=== PATIENT | female | born 1975 | race Caucasian/White ===

== ENCOUNTER 2020-11-17 00:56 | Inpatient (IN) | payer OTHER ==
--- NOTE | 2020-11-17 01:05 | ED ---
Chest Pain HPI - General Stated Complaint: Chest Pain Time Seen by Provider: 11/17/20 00:59 - History of Present Illness Initial Comments: This patient is a 44-year-old woman who presents here as a transfer from [facility] [place]. The patient had gone there this evening to be evaluated for chest pain. The pain had started in the morning, is substernal and radiates to her back. She states that it became worse in the afternoon and she really notices it after playing with her grandson. Patient denies having any sort of injury or doing any lifting. She describes it as a sharp pain. She did not notice any worsening or relieving factors. It is been constant. She rates it moderate to severe. Pain was somewhat relieved when she was given analgesic at the other facility. They did attempt to transfer her to the facilities where she receives her cardiac care. [facility] and [facility] in [place] but these were both at capacity. Patient's history is notable for having hypertrophic obstructive cardiomyopathy. She did have cardiac myomectomy and a mitral valvuloplasty at [facility]. In addition, patient states she was a little short of breath. No fever or chills. No cough. No nausea or vomiting. No leg pain or swelling MD Complaint: chest pain -: hour(s) Onset: during rest Pain Location: substernal Pain Radiation: back Severity: severe Quality: aching Consistency: constant Improves With: medication-other Worsens With: nothing Anginal Symptoms: dyspnea Treatments Prior to Arrival: other - Related Data Allergies Allergy/AdvReac Type Severity Reaction Status Date / Time digoxin Allergy Anaphylaxis Verified 11/17/20 01:38 Iodinated Contrast Media Allergy Anaphylaxis Verified 11/17/20 01:17 Penicillins Allergy Anaphylaxis Verified 11/17/20 01:17 erythromycin base AdvReac Rash/Hives Verified 11/17/20 01:17 nitroglycerin AdvReac Dyspnea Verified 11/17/20 01:17 sulfamethoxazole AdvReac Rash/Hives Verified 11/17/20 01:17 [From Bactrim] trimethoprim [From Bactrim] AdvReac Rash/Hives Verified 11/17/20 01:17 Review of Systems ROS Statement: Those systems with pertinent positive or pertinent negative responses have been documented in the HPI. ROS Other: All systems not noted in ROS Statement are negative. Constitutional: Denies: fever, chills Respiratory: Reports: dyspnea. Denies: cough, wheezes, hemoptysis Cardiovascular: Reports: chest pain. Denies: palpitations, orthopnea, edema, syncope Gastrointestinal: Denies: abdominal pain, nausea, vomiting, diarrhea Genitourinary: Denies: dysuria, hematuria Musculoskeletal: Denies: back pain Skin: Denies: rash Neurological: Denies: headache, weakness, numbness EKG Findings - EKG Results: EKG: interpreted by ERMD, sinus rhythm (Rate 94 bpm), normal axis, normal ST/T - Blocks, [place], Hypertrophy, ST Abn: AV and intraventricular conduction: left bundle branch block (fixed/intermittent, complete/incomplete) General Exam General appearance: alert, in no apparent distress Head exam: Present: atraumatic, normocephalic Eye exam: Present: normal appearance. Absent: scleral icterus, conjunctival injection Neck exam: Present: normal inspection, full ROM Respiratory exam: Present: normal lung sounds bilaterally. Absent: respiratory distress, wheezes, rales, rhonchi, stridor Cardiovascular Exam: Present: regular rate, normal rhythm, systolic murmur. Absent: diastolic murmur, rubs, gallop GI/Abdominal exam: Present: soft. Absent: distended, tenderness, guarding, rebound, rigid, mass, pulsatile mass, hernia Extremities exam: Present: normal inspection, normal capillary refill. Absent: pedal edema, calf tenderness Back exam: Present: normal inspection. Absent: CVA tenderness (R), CVA tenderness (L) Neurological exam: Present: alert Skin exam: Present: warm, dry, intact, normal color. Absent: rash Course Vital Signs 11/17/20 11/17/20 11/17/20 01:09 01:45 01:55 Temperature 99 F Pulse Rate 93 83 69 Respiratory 20 18 20 Rate Blood Pressure 173/105 166/105 138/83 O2 Sat by Pulse 97 98 98 Oximetry 11/17/20 02:00 Temperature Pulse Rate 69 Respiratory 20 Rate Blood Pressure 119/78 O2 Sat by Pulse 98 Oximetry Disposition Referrals: Morena Price MD [Primary Care Provider] - 1-2 days
[2020-11-17] MEDS ORDERED: LABETALOL 5 MG/ML VIAL MDV IVP STA (01:18)
[2020-11-17 01:33] LABS: Anisocytosis Slight; Basophils # (A) 0.1 k/uL (0-0.2); Basophils % (A) 1 %; Eosinophils # (A) 0.3 k/uL (0-0.7); Eosinophils % (A) 3 %; HCT 30.3 % (34.0-46.0); HGB 8.7 gm/dL (11.4-16.0); Hypochromasia Marked; Lymphocytes # (A) 2.1 k/uL (1.0-4.8); Lymphocytes % (A) 20 %; MCHC 28.8 g/dL (31.0-37.0); MCV 69.5 fL (80.0-100.0); Mean Platelet Volume 7.1; Microcytosis Marked; Monocytes # (A) 0.7 k/uL (0-1.0); Monocytes % (A) 6 %; Neutrophils # (A) 7.4 k/uL (1.3-7.7); Neutrophils % (A) 69 %; Platelet Count 313 k/uL (150-450); Poikilocytosis Slight; RBC 4.36 m/uL (3.80-5.40); RDW 17.2 % (11.5-15.5); WBC 10.8 k/uL (3.8-10.6)
[2020-11-17 01:43] LABS: ALT 16 U/L (4-34); AST 28 U/L (14-36); African American GFR (CKD) >90 (>60 ml/min/1.73 sqM); Albumin 4.4 g/dL (3.5-5.0); Alkaline Phosphatase 74 U/L (38-126); Amylase 152 U/L (30-110); Anion Gap 10 mmol/L; Blood Urea Nitrogen 12 mg/dL (7-17); Calcium 9.3 mg/dL (8.4-10.2); Carbon Dioxide 22 mmol/L (22-30); Chloride 102 mmol/L (98-107); Glucose 110 mg/dL (74-99); Lipase 1704 U/L (23-300); Magnesium 1.9 mg/dL (1.6-2.3); Non-African American GFR(CKD) >90 (>60 ml/min/1.73 sqM); Potassium 4.1 mmol/L (3.5-5.1); Sodium 134 mmol/L (137-145); Total Bilirubin 0.8 mg/dL (0.2-1.3); Total Protein 7.3 g/dL (6.3-8.2)
[2020-11-17 02:08] LABS: Prothrombin Time 10.3 sec (9.0-12.0)
[2020-11-17 02:14] LABS: Partial Thromboplastin Time 20.6 sec (22.0-30.0)
[2020-11-17] MEDS ORDERED: HYDROmorphone 1 MG/ML 1 ML SYRINGE IVP STA (02:19)
[2020-11-17] MEDS ORDERED: NITROGLYCERIN SL TABS 0.4 MG TAB SUBLINGUAL PRN (03:38)
--- NOTE | 2020-11-17 03:43 | XR ---
EXAMINATION TYPE: XR chest 2V DATE OF EXAM: 11/17/2020 COMPARISON: Yesterday HISTORY: Chest pain TECHNIQUE: 2 views FINDINGS: There is no heart failure nor confluent pneumonic infiltrate. There is left axillary pacema ker. There are sternal wires. Costophrenic angles are clear. IMPRESSION: No active cardiopulmonary disease. No change.
--- NOTE | 2020-11-17 06:58 | P.HPIM ---
History of Present Illness H&P Date: 11/17/20 Chief Complaint: chest pain 44 year old female with HOCM patient comes in due to worsening of her chest pain , after attempting to lift her 2 year old grandson in the afternoon today, she claims at baseline she always has some degree of chest pain , and becomes easily winded with slightest activity. however, today she started experiencing sharp retrosternal chest pain radiates to the back , no nausea or vomiting, but initially she became diaphoretic and winded. pain will get worse with activity , and improves with pain meds. 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 she has received septal myomectomy and valveloplasty of mitral valve 2016, she also has an ICD device. she normally receives her care at [facility] or [facility] in [place], last time she was hospitalized at [facility] for 5 months till April 2019. she went to [facility] who tried to transfer her to [facility] or [facility] in [place], but both were at capacity . she also is on Xarelto for history of multiple blood clots, of which some had happened while on Xarelto . her current D dimer elevated, however, sheis not hyp oxic and no leg swelling or calf tenderness, she is allergic to contrast with severe allergy and requires prep. blood work at the other facility showed, leukocytosis 10.8. chronic microcytic anemia , patient claims she has heavy menstrual bleeding that has just recently stopped and was on going for about 3 months straight EKG showed chronic LBBB patient amylase and lipase elevated but she denies any history of pancreatitis, denies any abd pain , or ulcers. she denies alcohol drinking or smoking. and reports history of cholecystectomy CXR unremarkable Review of Systems Pertinent positives as noted in HPI. All other systems were reviewed and are neg ative Past Medical History Past Medical History: Chest Pain / Angina, Heart Failure, Hypertension, Myocardial Infarction ([place]) Additional Past Medical History / Comment(s): Hypertrophic obstructive myopathy, ISABELLA, Dystolic CHF, PE bilateral lung, DVT bilateral legs History of Any Multi-Drug Resistant Organisms: None Reported Past Surgical History: Cardiac Valve Replacement, Section, Cholecystectomy, Orthopedic Surgery, Pacemaker Additional Past Surgical History / Comment(s): back fusion Past Psychological History: PTSD Smoking Status: Former smoker Past Alcohol Use History: None Reported Past Drug Use History: None Reported - Past Family History family Family Medical History: No Reported History Medications and Allergies Allergies Allergy/AdvReac Type Severity Reaction Status Date / Time digoxin Allergy Anaphylaxis Verified 11/17/20 01:38 Iodinated Contrast Media Allergy Anaphylaxis Verified 11/17/20 01:17 Penicillins Allergy Anaphylaxis Verified 11/17/20 01:17 erythromycin base AdvReac Rash/Hives Verified 11/17/20 01:17 nitroglycerin AdvReac Dyspnea Verified 11/17/20 01:17 sulfamethoxazole AdvReac Rash/Hives Verified 11/17/20 01:17 [From Bactrim] trimethoprim [From Bactrim] AdvReac Rash/Hives Verified 11/17/20 01:17 Physical Exam Vitals: Vital Signs Temp Pulse Resp BP Pulse Ox 11/17/20 04:00 74 18 101/61 98 11/17/20 02:00 69 20 119/78 98 11/17/20 01:55 69 20 138/83 98 11/17/20 01:45 83 18 166/105 98 11/17/20 01:09 99 F 93 20 173/105 97 Intake and Output 11/16/20 11/16/20 11/17/20 14:59 22:59 06:59 Other: Weight 99.79 kg Constitutional: No acute distress, conversant, pleasant Eyes: Anicteric sclerae, moist conjunctiva, Pupils equal round reactive to light ENMT: NC/AT Oropharynx clear, no erythema, or exudates Neck: Supple, FROM, no masses, or JVD No carotid bruits No thyromegaly Lungs: Clear to auscultation Clear to percussion Normal respiratory effort, no accessory muscle use Cardiovascular: Heart regular in rate and rhythm, systolic murmurs, no gallops, or rubs No peripheral edema Abdominal: Soft Nontender, no guarding, rebound or rigidity Abdomen moving with respiration Normoactive bowel sounds No hepatomegaly, No splenomegaly No palpable mass No abdominal wall hernia noted Skin: Normal temperature, tone, texture, turgor No induration No subcutaneous nodules No rash, lesions No ulcers Extremities: No digital cyanosis No clubbing Pedal pulses intact and symmetrical Radial pulses intact and symmetrical No calf tenderness Psychiatric: Alert and oriented to person, place and time Appropriate affect fair judgement Neuro Muscles Strength 5/5 in all 4 extremities Sensation to light touch grossly present throughout Cranial nerves II-XII grossly intact No focal sensory deficits Lymphatics: no palpable cervical or supraclavicular , or inguinal lymph nodes Results CBC & Chem 7: 11/17/20 01:25 11/17/20 01:25 Labs: Abnormal Lab Results - Last 24 Hours (Table) 11/17/20 11/17/20 11/17/20 Range/Units 01:25 01:25 01:25 WBC 10.8 H (3.8-10.6) k/uL Hgb 8.7 L (11.4-16.0) gm/dL Hct 30.3 L (34.0-46.0) % MCV 69.5 L (80.0-100.0) fL MCH 20.0 L (25.0-35.0) pg MCHC 28.8 L (31.0-37.0) g/dL RDW 17.2 H (11.5-15.5) % APTT 20.6 L (22.0-30.0) sec D-Dimer 0.74 H (<0.60) mg/L FEU Sodium 134 L (137-145) mmol/L Glucose 110 H (74-99) mg/dL Troponin I (0.000-0.034) ng/mL Amylase 152 H (30-110) U/L Lipase 1704 H (23-300) U/L 11/17/20 Range/Units 01:25 WBC (3.8-10.6) k/uL Hgb (11.4-16.0) gm/dL Hct (34.0-46.0) % MCV (80.0-100.0) fL MCH (25.0-35.0) pg MCHC (31.0-37.0) g/dL RDW (11.5-15.5) % APTT (22.0-30.0) sec D-Dimer (<0.60) mg/L FEU Sodium (137-145) mmol/L Glucose (74-99) mg/dL Troponin I 0.042 H* (0.000-0.034) ng/mL Amylase (30-110) U/L Lipase (23-300) U/L Assessment and Plan Assessment: atypical chest pain , rule out ACS HOCM s/p septal myomectomy and valveloplasty of mitral valve , s/p ICD denies history of CAD slightly elevated trops, patient claims that she has chronically elevated trops trend trops resume cardiac meds once verified cardiology consult consider contacting her [facility] resident care aid for further recommendations , and if they want to consider transfer and accepting her cardiac monitoring avoid diuretics avoid nitro , or meds that lowers preload. like hydralazine EKG chronic LBBB pain control with dilaudid elevated D dimer oxygen saturation >94%on room air no calf tenderness hisotry of multiple clots , currently on xarelto resume blood thinner s chronic microcytic anemia suspected iron deficiency anemia from heavy menses check iron studies monitor hemoglobin elevated amylase / lipase , unknown baseline, unknown cause no S&S of acute pancreatitis or PUD close monitoring denies alcohol drinking , history of cholecystectomy verify home meds full code DVT PPX on xarelto consider contacting [facility] to discuss her case with her resident care aid, and see if they would like to accept her anticipated length of stay <2 midnights anticipated discharge to home vs transfer to tertiary center
[2020-11-17] MEDS: HYDROmorphone 0.5 MG/0.5 ML SYRINGE IVP PRN ×4 (07:44→23:41)
[2020-11-17] MEDS: METOPROLOL SUCCINATE (ER) 100 MG TAB.ER.24H PO SCH ×2 (09:26→19:57)
[2020-11-17] MEDS: RIVAROXABAN 20 MG TAB PO SCH (09:27)
[2020-11-17] MEDS: LOSARTAN 25 MG TAB PO SCH (09:31)
[2020-11-17] MEDS ORDERED: methylPREDNISolone SOD SUCCI 125 MG/2 ML VIAL IM ONE (09:37)
[2020-11-17] MEDS ORDERED: diphenhydrAMINE 50 MG/ML 1 ML VIAL IVP STA (09:39)
[2020-11-17] MEDS ORDERED: FAMOTIDINE 20 MG/2 ML VIAL IV STA (09:40)
[2020-11-17] MEDS ORDERED: MEXILETINE 150 MG CAP PO SCH (10:00)
[2020-11-17 10:43] LABS: Anisocytosis Slight; Basophils % (A) 1 %; Eosinophils # (A) 0.2 k/uL (0-0.7); Eosinophils % (A) 3 %; HCT 27.9 % (34.0-46.0); HGB 8.1 gm/dL (11.4-16.0); Hypochromasia Marked; Lymphocytes # (A) 1.5 k/uL (1.0-4.8); Lymphocytes % (A) 20 %; MCH 20.9 pg (25.0-35.0); MCHC 29.1 g/dL (31.0-37.0); MCV 71.7 fL (80.0-100.0); Mean Platelet Volume 7.2; Microcytosis Moderate; Monocytes # (A) 0.5 k/uL (0-1.0); Monocytes % (A) 6 %; Neutrophils # (A) 5.2 k/uL (1.3-7.7); Neutrophils % (A) 68 %; Platelet Count 275 k/uL (150-450); Poikilocytosis Slight; RDW 17.3 % (11.5-15.5); WBC 7.6 k/uL (3.8-10.6)
[2020-11-17 11:12] LABS: ALT 19 U/L (4-34); AST 30 U/L (14-36); African American GFR (CKD) >90 (>60 ml/min/1.73 sqM); Albumin 3.9 g/dL (3.5-5.0); Alkaline Phosphatase 65 U/L (38-126); Anion Gap 9 mmol/L; Blood Urea Nitrogen 13 mg/dL (7-17); Calcium 8.7 mg/dL (8.4-10.2); Carbon Dioxide 23 mmol/L (22-30); Chloride 103 mmol/L (98-107); Glucose 115 mg/dL (74-99); Non-African American GFR(CKD) >90 (>60 ml/min/1.73 sqM); Potassium 4.1 mmol/L (3.5-5.1); Sodium 135 mmol/L (137-145); Total Bilirubin 0.5 mg/dL (0.2-1.3); Total Protein 6.5 g/dL (6.3-8.2)
--- NOTE | 2020-11-17 12:41 | P.CRDCN ---
History of Present Illness History of present illness: HISTORY OF PRESENTING ILLNESS This is a pleasant 44-year-old female past medical history significant for hypertrophic cardiomyopathy status post septal myomectomy, valvular heart d isease status postmitral valvuloplasty, chronic systolic heart failure status post AICD placement, left bundle branch block, history of blood clots in the past maintained on Xarelto, hypertension and anemia. She follows in the office with Dr. Nicole at [facility], however she states she has not been to see him since the pandemic. She was evaluated at [facility] in July and underwent cardiac catheterization that revealed no significant blockages according to the patient. We have been asked to see in consultation for chest pain. She states yesterday while watching her grandson she bent down to pick him up and had an acute onset of chest pain described as tightness. She took an extra lopressor and losartan, put on her oxygen and laid down to rest. Shortly thereafter, her boyfriend checked on her and apparently her lips were blue and she was pale. On arrival to ER at [place]. She was then transferred here for further cardiac evaluation. She states dilaudid is relieving her pain mostly but still mildly ongoing 5/10, which she states is tolerable. No shortness of breath, dizziness or palpi tations. DIAGNOSTICS EKG reveals sinus rhythm heart rate of 94 with left bundle branch block. Chest xray negative for an acute cardiopulmonary process. Laboratory reviewed, WBC 7.6, hgb 8.1, plt 275, d-dimer 0.74, sodium 134, potassium 4.1, creatinine 0.74, troponin 0.042, 0.031, 0.027, proBNP 1520 and lipase 1704. Current cardiac medications include xarelto 20 mg daily, ranexa 500 mg BID, mexiletine 150 mg TID, toprol 200 mg BID, losartan 25 mg daily, lasix 20 mg daily as needed for lower extremity swelling, atorvastatin 40 mg daily and aspirin 81 mg daily. REVIEW OF SYSTEMS At the time of my exam: CONSTITUTIONAL: Denies fever or chills. CARDIOVASCULAR: Complains of chest pain. Denies shortness of breath, orthopnea, PND or palpitations. RESPIRATORY: Denies cough. GASTROINTESTINAL: Denies abdominal pain, diarrhea, constipation, nausea or vomiting. MUSCULOSKELETAL: Denies myalgias. NEUROLOGIC: Denies numbness, tingling, headache or weakness. ENDOCRINE: Denies fatigue, weight change, polydipsia or polyurina. GENITOURINARY: Denies burning, hematuria or urgency with micturation. HEMATOLOGIC: Denies history of anemia or bleeding. PHYSICAL EXAMINATION Blood pressure 119/78 heart rate 70 afebrile and maintaining oxygen saturation on room air. CONSTITUTIONAL: No apparent distress. HEENT: Head is normocephalic. Pupils are equal, round. Sclerae anicteric. Mucous membranes of the mouth are moist. No JVD. No carotid bruit. CHEST EXAMINATION: Lungs are clear to auscultation. No chest wall tenderness is noted on palpation or with deep breathing. HEART EXAMINATION: Regular rate and rhythm. S1, S2 heard. No murmurs, gallops or rub. ABDOMEN: Soft, nontender. EXTREMITIES: 2+ peripheral pulses, no lower extremity edema and no calf tenderness. NEUROLOGIC EXAMINATION: Patient is awake, alert and oriented x3. ASSESSMENT Chest pain, atypical Pancreatitis Chronic troponin elevation according to the patient. Recent normal cath. Hypertrophic cardiomyopathy s/p septal myomectomy Valvular heart disease s/p valvuloplasty Hypertension Chronic systolic heart failure s/p AICD Left bundle branch block PLAN Check VQ scan as she is allergic to IV contrast dye and is hesitant to have CTA due to severe reaction in the past. Echocardiogram has been ordered and will be reviewed. Request report of recent catheterization from [facility]. Unclear of rationale for the use of aspirin and ranexa given her reported history of no CAD. We will await cath films to make further adjustments. Further recommendations to follow based on clinical course. Thank you kindly for this consultation. Nurse Practitioner note has been reviewed, I agree with a documented findings and plan of care. Patient was seen and examined. Past Medical History Past Medical History: Chest Pain / Angina, Heart Failure, Hypertension, Myocardial Infarction ([place]) Additional Past Medical History / Comment(s): Hypertrophic obstructive myopathy, ISABELLA, Dystolic CHF, PE bilateral lung, DVT bilateral legs History of Any Multi-Drug Resistant Organisms: None Reported Past Surgical History: Cardiac Valve Replacement, Section, Cholecystectomy, Orthopedic Surgery, Pacemaker Additional Past Surgical History / Comment(s): back fusion Past Psychological History: PTSD Smoking Status: Former smoker Past Alcohol Use History: None Reported Past Drug Use History: None Reported - Past Family History family Family Medical History: No Reported History Medications and Allergies Home Medications Medication Instructions Recorded Confirmed Type Aspirin EC [Ecotrin Low Dose] 81 mg PO DAILY 11/17/20 11/17/20 History Atorvastatin [Lipitor] 40 mg PO HS 11/17/20 11/17/20 History Furosemide [Lasix] 20 mg PO DAILY PRN 11/17/20 11/17/20 History Ibuprofen [Motrin] 800 mg PO Q8H PRN 11/17/20 11/17/20 History Losartan [Cozaar] 25 mg PO DAILY 11/17/20 11/17/20 History Metoprolol Succinate 200 mg PO BID 11/17/20 11/17/20 History Mexiletine [Mexitil] 150 mg PO Q8H 11/17/20 11/17/20 History Ranolazine [Ranolazine ER] 500 mg PO Q12HR 11/17/20 11/17/20 History Rivaroxaban [Xarelto] 20 mg PO DAILY 11/17/20 11/17/20 History Allergies Allergy/AdvReac Type Severity Reaction Status Date / Time digoxin Allergy Anaphylaxis Verified 11/17/20 07:11 Iodinated Contrast Media Allergy Anaphylaxis Verified 11/17/20 07:11 Penicillins Allergy Anaphylaxis Verified 11/17/20 07:11 erythromycin base AdvReac Rash/Hives Verified 11/17/20 07:11 nitroglycerin AdvReac Dyspnea Verified 11/17/20 07:11 sulfamethoxazole AdvReac Rash/Hives Verified 11/17/20 07:11 [From Bactrim] trimethoprim [From Bactrim] AdvReac Rash/Hives Verified 11/17/20 07:11 Physical Exam Vitals: Vital Signs Temp Pulse Resp BP Pulse Ox 11/17/20 09:26 70 18 119/78 97 11/17/20 07:35 98 F 79 18 120/74 98 11/17/20 04:00 74 18 101/61 98 11/17/20 02:00 69 20 119/78 98 11/17/20 01:55 69 20 138/83 98 11/17/20 01:45 83 18 166/105 98 11/17/20 01:09 99 F 93 20 173/105 97 Intake and Output 11/16/20 11/17/20 11/17/20 22:59 06:59 14:59 Other: Weight 99.79 kg Results 11/17/20 10:13 11/17/20 10:13 Cardiac Enzymes 11/17/20 11/17/20 11/17/20 Range/Units 01:25 01:25 06:29 AST 28 (14-36) U/L Troponin I 0.042 H* 0.031 (0.000-0.034) ng/mL 11/17/20 Range/Units 09:17 AST (14-36) U/L Troponin I 0.027 (0.000-0.034) ng/mL Coagulation 11/17/20 Range/Units 01:25 PT 10.3 (9.0-12.0) sec APTT 20.6 L (22.0-30.0) sec CBC 11/17/20 11/17/20 Range/Units 01:25 10:13 WBC 10.8 H 7.6 (3.8-10.6) k/uL RBC 4.36 3.90 (3.80-5.40) m/uL Hgb 8.7 L 8.1 L (11.4-16.0) gm/dL Hct 30.3 L 27.9 L (34.0-46.0) % Plt Count 313 275 (150-450) k/uL Comprehensive Metabolic Panel 11/17/20 Range/Units 01:25 Sodium 134 L (137-145) mmol/L Potassium 4.1 (3.5-5.1) mmol/L Chloride 102 (98-107) mmol/L Carbon Dioxide 22 (22-30) mmol/L BUN 12 (7-17) mg/dL Creatinine 0.74 (0.52-1.04) mg/dL Glucose 110 H (74-99) mg/dL Calcium 9.3 (8.4-10.2) mg/dL AST 28 (14-36) U/L ALT 16 (4-34) U/L Alkaline Phosphatase 74 (38-126) U/L Total Protein 7.3 (6.3-8.2) g/dL Albumin 4.4 (3.5-5.0) g/dL Current Medications Generic Name Dose Route Start Last Admin Trade Name Freq PRN Reason Stop Dose Admin Aspirin 81 mg 11/18/20 09:00 Aspirin 81 Mg PO DAILY [facility] Atorvastatin Calcium 40 mg 11/17/20 21:00 Atorvastatin 40 Mg Tab PO HS DENIA Hydromorphone HCl 0.5 mg 11/17/20 06:58 11/17/20 07:44 Hydromorphone 0.5 Mg/0.5 Ml Syringe IVP 0.5 mg Q3HR PRN Administration Pain Losartan Potassium 25 mg 11/17/20 09:15 11/17/20 09:31 Losartan 25 Mg Tab PO 25 mg DAILY DENIA Administration Metoprolol Succinate 200 mg 11/17/20 09:15 11/17/20 09:26 Metoprolol Succinate (Er) 100 Mg Tab.Er.24h PO Not Given BID DENIA Mexiletine HCl 150 mg 11/17/20 10:00 11/17/20 09:27 Mexiletine 150 Mg Cap PO 11/17/20 11:00 150 mg Q8H DENIA Administration Mexiletine HCl 150 mg 11/17/20 16:00 Mexiletine 150 Mg Cap PO Q8HR DENIA Ranolazine 500 mg 11/17/20 21:00 Ranolazine 500 Mg Tab.Er.12h PO Q12HR DENIA Rivaroxaban 20 mg 11/17/20 09:15 11/17/20 09:27 Rivaroxaban 20 Mg Tab PO 20 mg DAILY DENIA Administration Protocol Sodium Chloride 10 ml 11/17/20 09:00 11/17/20 07:47 Sodium Chloride 0.9% Flush 10 Ml Syringe IV 10 ml BID DENIA Administration Intake and Output 11/16/20 11/17/20 11/17/20 22:59 06:59 14:59 Other: Weight 99.79 kg 11/17/20 10:13 11/17/20 01:25
--- NOTE | 2020-11-17 14:17 | NM ---
EXAMINATION TYPE: NM pul vent and perfuse DATE OF EXAM: 11/17/2020 COMPARISON: Chest x-ray 11/17/2020 HISTORY: Chest pain TECHNIQUE: Utilizing inhalation of 38.8 mCi Tc 99m DTPA aerosol and intravenous injection of 4.9 mCi of Tc 99m MAA, ventilation and perfusion images are acquired post injection in multiple projections. FINDINGS: Matched defect involving the left lung likely corresponds the patient's cardiac device. There is matc hed defect involving the right lower lobe. No definitive mismatch defects seen. IMPRESSION: Intermediate probability for pulmonary embolism.
[2020-11-17] MEDS: MEXILETINE 150 MG CAP PO SCH ×2 (16:57→23:41)
--- NOTE | 2020-11-17 19:37 | ECHOF ---
Referral Reason:cp MEASUREMENTS -------- HEIGHT: 162.6 cm WEIGHT: 99.8 kg BP: 119/78 RVIDd: 3.6 cm (< 3.3) IVSd: 2.1 cm (0.6 - 1.1) LVIDd: 4.5 cm (3.9 - 5.3) LVPWd: 2.0 cm (0.6 - 1.1) IVSs: 2.0 cm LVIDs: 3.2 cm LVPWs: 2.4 cm LAESV Index (A-L): 51.01 ml/m Ao Diam: 2.3 cm (2.0 - 3.7) AV Cusp: 1.8 cm (1.5 - 2.6) LA Diam: 4.4 cm (2.7 - 3.8) MV EXCURSION: 13.261 mm (> 18.000) MV EF SLOPE: 76 mm/s (70 - 150) EPSS: 0.3 cm MV E Kyler: 1.44 m/s MV DecT: 184 ms MV A Kyler: 0.49 m/s MV E/A Ratio: 2.96 AV maxP.47 mmHg AV meanP.16 mmHg RAP: 5.00 mmHg RVSP: 49.03 mmHg FINDINGS -------- Sinus rhythm. Pacerwire seen in RV and RA. This was a technically adequate study. The left ventricular size is normal. There is severe concentric left ventricular hypertrophy. Ove rall left ventricular systolic function is normal with, an EF between 55 - 60 %. LVOT Obstruction The right ventricle is mildly enlarged. LA is severely dilated >40 ml/m2 The right atrial size is normal. Interatrial and interventricular septum intact. The aortic valve is trileaflet, and appears structurally normal. No aortic stenosis or regurgitation. There is no evidence of aortic regurgitation. There is no evidence of aortic stenosis. Severe mitral regurgitation is present. MV Repair. [id number] tricuspid regurgitation present. There is mild to moderate pulmonary hypertension. The right ventricular systolic pressure, as measured by Doppler, is 49.03mmHg. There is no pulmonic regurgitation present. The aortic root size is normal. Normal inferior vena cava with normal inspiratory collapse consistent with estimated right atrial pre ssure of 5 mmHg. There is no pericardial effusion. CONCLUSIONS -------- 1. Pacerwire seen in RV and RA. 2. There is severe concentric left ventricular hypertrophy. 3. Overall left ventricular systolic function is normal with, an EF between 55 - 60 %. 4. LVOT Obstruction 5. The right ventricle is mildly enlarged. 6. LA is severely dilated >40 ml/m2 7. The aortic valve is trileaflet, and appears structurally normal. No aortic stenosis or regurgitati on. 8. Severe mitral regurgitation is present. 9. MV Repair. 10. [id number] tricuspid regurgitation present. 11. There is mild to moderate pulmonary hypertension. 12. There is no pericardial effusion. DIVISION OPERATIONS MANAGER: Cristal Miranda RDCS
[2020-11-17] MEDS: RANOLAZINE 500 MG TAB.ER.12H PO SCH (19:56)
[2020-11-17] MEDS: ATORVASTATIN 40 MG TAB PO SCH (19:56)
[2020-11-17 20:12] LABS: % Iron Saturation 3.93 (12.00-45.00)
[2020-11-17 20:15] LABS: Ferritin 7.5 ng/mL (10.0-291.0)
[2020-11-17] MEDS: ONDANSETRON 4 MG/2 ML VIAL IVP PRN (23:41)
[2020-11-18 07:27] LABS: Anisocytosis Slight; Basophils # (A) 0.1 k/uL (0-0.2); Basophils % (A) 1 %; Eosinophils # (A) 0.4 k/uL (0-0.7); Eosinophils % (A) 5 %; HCT 28.1 % (34.0-46.0); Hypochromasia Marked; Lymphocytes # (A) 1.4 k/uL (1.0-4.8); Lymphocytes % (A) 18 %; MCH 20.8 pg (25.0-35.0); MCHC 28.5 g/dL (31.0-37.0); MCV 72.8 fL (80.0-100.0); Mean Platelet Volume 7.7; Microcytosis Moderate; Monocytes # (A) 0.7 k/uL (0-1.0); Monocytes % (A) 9 %; Neutrophils # (A) 5.2 k/uL (1.3-7.7); Neutrophils % (A) 66 %; Platelet Count 277 k/uL (150-450); Poikilocytosis Slight; RBC 3.87 m/uL (3.80-5.40); RDW 17.5 % (11.5-15.5); WBC 7.9 k/uL (3.8-10.6)
[2020-11-18 07:36] LABS: ALT 16 U/L (4-34); AST 26 U/L (14-36); African American GFR (CKD) >90 (>60 ml/min/1.73 sqM); Albumin 3.6 g/dL (3.5-5.0); Alkaline Phosphatase 61 U/L (38-126); Anion Gap 9 mmol/L; Blood Urea Nitrogen 14 mg/dL (7-17); Carbon Dioxide 21 mmol/L (22-30); Chloride 103 mmol/L (98-107); Glucose 113 mg/dL (74-99); Non-African American GFR(CKD) >90 (>60 ml/min/1.73 sqM); Potassium 4.4 mmol/L (3.5-5.1); Sodium 133 mmol/L (137-145); Total Bilirubin 0.6 mg/dL (0.2-1.3); Total Protein 6.3 g/dL (6.3-8.2)
[2020-11-18] MEDS: HYDROmorphone 0.5 MG/0.5 ML SYRINGE IVP PRN ×4 (08:11→19:44)
[2020-11-18] MEDS: LOSARTAN 25 MG TAB PO SCH (08:17)
[2020-11-18] MEDS: RIVAROXABAN 20 MG TAB PO SCH (08:17)
[2020-11-18] MEDS: MEXILETINE 150 MG CAP PO SCH ×3 (08:17→23:09)
[2020-11-18] MEDS: ASPIRIN 81 MG PO SCH (08:17)
[2020-11-18] MEDS: RANOLAZINE 500 MG TAB.ER.12H PO SCH ×2 (08:17→19:44)
[2020-11-18] MEDS ORDERED: ASPIRIN 325 MG TAB PO SCH (09:00)
--- NOTE | 2020-11-18 09:49 | P.PN ---
Subjective Progress Note Date: 11/18/20 HISTORY OF PRESENT ILLNESS: This is a pleasant 44-year-old female past medical history significant for hypertrophic cardiomyopathy status post septal myomectomy, valvular heart disease status postmitral valvuloplasty, chronic systolic heart failure status post AICD placement, left bundle branch block, history of blood clots in the past maintained on Xarelto, hypertension and anemia. She follows in the office with Dr. Nicole at [facility], however she states she has not been to see him since the pandemic. She was evaluated at [facility] in July and underwent cardiac catheterization that revealed no significant blockages according to the patient. We have been asked to see in consultation for chest pain. She states yesterday while watching her grandson she bent down to pick him up and had an acute onset of chest pain described as tightness. She took an extra lopressor and losartan, put on her oxygen and laid down to rest. Shortly thereafter, her boyfriend check ed on her and apparently her lips were blue and she was pale. On arrival to ER at [place]. She was then transferred here for further cardiac evaluation. She states dilaudid is relieving her pain mostly but still mildly ongoing 5/10, which she states is tolerable. No shortness of breath, dizziness or palpitations. DIAGNOSTICS EKG reveals sinus rhythm heart rate of 94 with left bundle branch block. Chest xray negative for an acute cardiopulmonary process. Laboratory reviewed, WBC 7.6, hgb 8.1, plt 275, d-dimer 0.74, sodium 134, potassium 4.1, creatinine 0.74, troponin 0.042, 0.031, 0.027, proBNP 1520 and lipase 1704. Current cardiac medications include xarelto 20 mg daily, ranexa 500 mg BID, mexiletine 150 mg TID, toprol 200 mg BID, losartan 25 mg daily, lasix 20 mg daily as needed for lower extremity swelling, atorvastatin 40 mg daily and aspirin 81 mg daily. 11/18/2020 Patient examined this morning at the bedside. She reports having some chest discomfort last night before bed that was relieved with Dilaudid. She states she woke up around 7am today with chest pain. She states the pain is a heavy pressure in the middle of her chest and radiates to her back. She reports increased pain with deep inspiration. No shortness of breath. Blood pressure 97/59. Echocardiogram completed revealed ejection fraction 55-60%, LVOT obstruction, severe mitral regurgitation, MV repair, mild to moderate tricuspid regurgitation, and [id number] pulmonary hypertension. PHYSICAL EXAM: VITAL SIGNS: Reviewed. GENERAL: Well-developed in no acute distress. NECK: Supple. No JVD or thyromegaly LUNGS: Respirations even and unlabored. Lungs essentially clear to auscultation bilaterally. HEART: Regular rate and rhythm. S1 and S2 heard. Systolic murmur noted. EXTREMITIES: Normal range of motion. No clubbing or cyanosis. Peripheral pulses intact. No lower extremity edema ASSESSMENT: Chest pain, atypical Anemia Pancreatitis Chronic troponin elevation according to the patient. Recent normal cath. Hypertrophic cardiomyopathy s/p septal myomectomy Valvular heart disease s/p valvuloplasty Hypertension Chronic systolic heart failure s/p AICD, echo now shows normal EF Left bundle branch block History of blood clots, on anticoagulation with Xarelto PLAN: Continue current cardiac medications Obtain troponin x 2 Patients chest pain may be secondary to anemia. Defer decision for transfusion to internal medicine. However, patient may benefit from transfusion as she is clinically symptomatic from her anemia. Awaiting records from [facility] of recent heart cath Further recommendations pending patient course Nurse practitioner note has been reviewed by physician. Signing provider agrees with the documented findings, assessment, and plan of care. Objective - Vital Signs Vital signs: Vital Signs Temp 97.6 F 11/18/20 08:00 Pulse 63 11/18/20 08:00 Resp 16 11/18/20 08:00 BP 97/59 11/18/20 08:00 Pulse Ox 100 11/18/20 08:00 Intake & Output 11/17/20 11/18/20 11/18/20 18:59 06:59 18:59 Intake Total 180 440 Balance 180 440 Weight 99.79 kg Intake: Oral 180 440 Other: # Voids 1 - Labs CBC & Chem 7: 11/18/20 06:55 11/18/20 06:57 Labs: Abnormal Lab Results - Last 24 Hours (Table) 11/17/20 11/17/20 11/17/20 Range/Units 09:17 10:13 10:13 Hgb 8.1 L (11.4-16.0) gm/dL Hct 27.9 L (34.0-46.0) % MCV 71.7 L (80.0-100.0) fL MCH 20.9 L (25.0-35.0) pg MCHC 29.1 L (31.0-37.0) g/dL RDW 17.3 H (11.5-15.5) % Sodium 135 L (137-145) mmol/L Carbon Dioxide (22-30) mmol/L Glucose 115 H (74-99) mg/dL Iron 17 L (50-170) ug/dL % Saturation 3.93 L (12.00-45.00) Ferritin 7.5 L (10.0-291.0) ng/mL 11/18/20 11/18/20 Range/Units 06:55 06:57 Hgb 8.0 L (11.4-16.0) gm/dL Hct 28.1 L (34.0-46.0) % MCV 72.8 L (80.0-100.0) fL MCH 20.8 L (25.0-35.0) pg MCHC 28.5 L (31.0-37.0) g/dL RDW 17.5 H (11.5-15.5) % Sodium 133 L (137-145) mmol/L Carbon Dioxide 21 L (22-30) mmol/L Glucose 113 H (74-99) mg/dL Iron (50-170) ug/dL % Saturation (12.00-45.00) Ferritin (10.0-291.0) ng/mL
[2020-11-18] MEDS: METOPROLOL SUCCINATE (ER) 100 MG TAB.ER.24H PO SCH ×2 (11:22→23:08)
--- NOTE | 2020-11-18 11:48 | P.PN ---
Subjective Progress Note Date: 11/18/20 Pt reports ongoing symptoms of retrosternal and epigastric pain. Appeared comfortably resting in bed upon my entering the room, but noted to be diaphoretic and distressed during my interview. Objective - Vital Signs Vital signs: Vital Signs Temp 97.6 F 11/18/20 08:00 Pulse 63 11/18/20 08:00 Resp 16 11/18/20 08:00 BP 97/59 11/18/20 08:00 Pulse Ox 100 11/18/20 08:00 Intake & Output 11/17/20 11/18/20 11/18/20 18:59 06:59 18:59 Intake Total 180 440 240 Balance 180 440 240 Weight 99.79 kg 107.4 kg Intake: Oral 180 440 240 Other: # Voids 1 - Exam Gen: awake, alert HEENT: normocephalic, atraumatic, good hearing acuity, moist mucous membranes Resp: good air exchange, breathing comfortably with no accessory muscle use CVS: good distal perfusion x 4, GI: soft, NTTP, ND : no SPT, no CVAT, reyna catheter not present MSK: no pitting edema, no clubbing Neuro: non-focal, moving all extremities Psych: cooperative, euthymic mood - Labs CBC & Chem 7: 11/18/20 06:55 11/18/20 06:57 Labs: Abnormal Lab Results - Last 24 Hours (Table) 11/17/20 11/18/20 11/18/20 Range/Units 09:17 06:55 06:57 Hgb 8.0 L (11.4-16.0) gm/dL Hct 28.1 L (34.0-46.0) % MCV 72.8 L (80.0-100.0) fL MCH 20.8 L (25.0-35.0) pg MCHC 28.5 L (31.0-37.0) g/dL RDW 17.5 H (11.5-15.5) % Sodium 133 L (137-145) mmol/L Carbon Dioxide 21 L (22-30) mmol/L Glucose 113 H (74-99) mg/dL Iron 17 L (50-170) ug/dL % Saturation 3.93 L (12.00-45.00) Ferritin 7.5 L (10.0-291.0) ng/mL Assessment and Plan Assessment: Atypical chest pain HOCM s/p septal myomectomy and valveloplasty of mitral valve , s/p ICD -trend trops -resume cardiac meds once verified -cardiology consult -consider contacting her [facility] inspection engineer for further recommendations , and if they want to consider transfer and accepting her -cardiac monitoring -avoid diuretics -avoid nitro , or meds that lowers preload. like hydralazine -EKG chronic LBBB -pain control with dilaudid Elevated D dimer History of VTE -oxygen saturation >94%on room air -no calf tenderness -currently on xarelto -resume blood thinner Iron Deficiency Anemia suspected iron deficiency anemia from heavy menses check iron studies monitor hemoglobin Elevated amylase / lipase History of cholecystectomy no S&S of acute pancreatitis or PUD close monitoring denies alcohol drinking , full code DVT PPX on xarelto consider contacting [facility] to discuss her case with her inspection engineer, and see if they would like to accept her anticipated length of stay <2 midnights anticipated discharge to home vs transfer to tertiary center
[2020-11-18 12:37] LABS: Chol/HDL Ratio 4.21; Cholesterol 122 mg/dL (0-200)
[2020-11-18] MEDS: ATORVASTATIN 40 MG TAB PO SCH (19:44)
[2020-11-19] MEDS: ONDANSETRON 4 MG/2 ML VIAL IVP PRN (02:11)
[2020-11-19] MEDS: HYDROmorphone 0.5 MG/0.5 ML SYRINGE IVP PRN ×3 (02:55→09:35)
[2020-11-19] MEDS: ASPIRIN 81 MG PO SCH (09:07)
[2020-11-19] MEDS: LOSARTAN 25 MG TAB PO SCH (09:07)
[2020-11-19] MEDS: RIVAROXABAN 20 MG TAB PO SCH (09:07)
[2020-11-19] MEDS: METOPROLOL SUCCINATE (ER) 100 MG TAB.ER.24H PO SCH (09:07)
[2020-11-19] MEDS: RANOLAZINE 500 MG TAB.ER.12H PO SCH (09:07)
[2020-11-19] MEDS: MEXILETINE 150 MG CAP PO SCH (09:08)
[2020-11-19 09:39] VITALS: PULSE 62; RESP 16; TEMP 98.2
--- NOTE | 2020-11-19 10:16 | P.PN ---
Subjective Progress Note Date: 11/19/20 HISTORY OF PRESENT ILLNESS: This is a pleasant 44-year-old female past medical history significant for hypertrophic cardiomyopathy status post septal myomectomy, valvular heart disease status postmitral valvuloplasty, chronic systolic heart failure status post AICD placement, left bundle branch block, history of blood clots in the past maintained on Xarelto, hypertension and anemia. She follows in the office with Dr. Nicole at [facility], however she states she has not been to see him since the pandemic. She was evaluated at [facility] in July and underwent cardiac catheterization that revealed no significant blockages according to the patient. We have been asked to see in consultation for chest pain. She states yesterday while watching her grandson she bent down to pick him up and had an acute onset of chest pain described as tightness. She took an extra lopressor and losartan, put on her oxygen and laid down to rest. Shortly thereafter, her boyfriend check ed on her and apparently her lips were blue and she was pale. On arrival to ER at [place]. She was then transferred here for further cardiac evaluation. She states dilaudid is relieving her pain mostly but still mildly ongoing 5/10, which she states is tolerable. No shortness of breath, dizziness or palpitations. DIAGNOSTICS EKG reveals sinus rhythm heart rate of 94 with left bundle branch block. Chest xray negative for an acute cardiopulmonary process. Laboratory reviewed, WBC 7.6, hgb 8.1, plt 275, d-dimer 0.74, sodium 134, potassium 4.1, creatinine 0.74, troponin 0.042, 0.031, 0.027, proBNP 1520 and lipase 1704. Current cardiac medications include xarelto 20 mg daily, ranexa 500 mg BID, mexiletine 150 mg TID, toprol 200 mg BID, losartan 25 mg daily, lasix 20 mg daily as needed for lower extremity swelling, atorvastatin 40 mg daily and aspirin 81 mg daily. 11/18/2020 Patient examined this morning at the bedside. She reports having some chest discomfort last night before bed that was relieved with Dilaudid. She states she woke up around 7am today with chest pain. She states the pain is a heavy pressure in the middle of her chest and radiates to her back. She reports increased pain with deep inspiration. No shortness of breath. Blood pressure 97/59. Echocardiogram completed revealed ejection fraction 55-60%, LVOT obstruction, severe mitral regurgitation, MV repair, mild to moderate tricuspid regurgitation, and [id number] pulmonary hypertension. 11/19/2020 Patient examined this morning at the bedside. She reports abdominal pain this morning. Denies chest pain. Vital signs are stable. Repeat troponin negative 2. PHYSICAL EXAM: VITAL SIGNS: Reviewed. GENERAL: Well-developed in no acute distress. NECK: Supple. No JVD or thyromegaly LUNGS: Respirations even and unlabored. Lungs essentially clear to auscultation bilaterally. HEART: Regular rate and rhythm. S1 and S2 heard. Systolic murmur noted. EXTREMITIES: Normal range of motion. No clubbing or cyanosis. Peripheral pulses intact. No lower extremity edema ASSESSMENT: Chest pain, atypical Anemia Pancreatitis Chronic troponin elevation according to the patient. Recent normal cath. Hypertrophic cardiomyopathy s/p septal myomectomy Valvular heart disease s/p valvuloplasty Hypertension Chronic systolic heart failure s/p AICD, echo now shows normal EF Left bundle branch block History of blood clots, on anticoagulation with Xarelto PLAN: Continue current cardiac medications Awaiting records from [facility] of recent heart cath, however patients pain does not apper to be cardiac in nature with negative repeat troponin levels Patient complaining of abdominal pain this morning. May benefit from GI/general surgery consult. Will defer to internal medicine We will sign off. Please reconsult if needed. Nurse practitioner note has been reviewed by physician. Signing provider agrees with the documented findings, assessment, and plan of care. Objective - Vital Signs Vital signs: Vital Signs Temp 98.2 F 11/19/20 08:00 Pulse 62 11/19/20 08:00 Resp 16 11/19/20 08:00 BP 122/54 11/19/20 08:00 Pulse Ox 98 11/19/20 08:00 Intake & Output 11/18/20 11/19/20 11/19/20 18:59 06:59 18:59 Intake Total 720 240 Balance 720 240 Weight 107.2 kg Intake: Oral 720 240 Other: # Voids 2 1 - Labs CBC & Chem 7: 11/18/20 06:55 11/18/20 06:57 Labs: Abnormal Lab Results - Last 24 Hours (Table) 11/18/20 Range/Units 06:57 Triglycerides 210.0 H (0.0-149.0) mg/dL VLDL Cholesterol, Calc 42.00 H (5.00-40.00) mg/dL HDL Cholesterol 29.0 L (40.0-60.0) mg/dL
[2020-11-19 12:52] VITALS: BP 111/72
--- NOTE | 2020-11-19 15:41 | P.DS ---
Providers Date of admission: 11/17/20 03:38 Expected date of discharge: 11/19/20 Attending physician: Nikhil Mcclain MD Primary care physician: [facility] Course: Atypical chest pain HOCM s/p septal myomectomy and valveloplasty of mitral valve , s/p ICD Patient admitted for chest pain. Trops were trended and were indeterminate, but did not increase to a level suspicious for ACS. EKG showed chronic LBBB. Echo demonstrated findings of normal EF, no WMA, +LVH with LVOT obstruction, severe MR. Pt was at baseline oxygen requirement and did not require IV diuresis. Recommendations were to f/u with cardiology for further management of MR and HOCM. Pt also sees local cardiology Dr. Escobar, which she will f/u with next week. Elevated D dimer History of VTE Oxygen saturation >94%on room air, no calf tenderness. V/Q scan showed no mismatched defects, intermediate probability of PE. She was on xarelto at home, and this was continued. Iron Deficiency Anemia Elevated amylase / lipase History of cholecystectomy Suspected iron deficiency anemia from heavy menses; iron studies were checked and confirmed. Pt started on iron supplements. Provided norco PRN for abdominal pain and started on protonix, famotidine, and tums PRN. Asked patient to discontinue 800mg ibuprofen for pain. Recommended GI f/u for endoscopic evaluation. I spent 41 minutes coordinating this complex discharge. Assessment: Gen: awake, alert HEENT: normocephalic, atraumatic, good hearing acuity, moist mucous membranes Resp: good air exchange, breathing comfortably with no accessory muscle use CVS: good distal perfusion x 4, GI: soft, NTTP, ND : no SPT, no CVAT, reyna catheter not present MSK: no pitting edema, no clubbing Neuro: non-focal, moving all extremities Psych: cooperative, euthymic mood Patient Condition at Discharge: Good Plan - Discharge Summary Discharge Rx Participant: Yes New Discharge Prescriptions: New Pantoprazole [Protonix] 40 mg PO DAILY #30 tab Calcium Carbonate [Tums Ultra Strength] 500 mg PO QID PRN #30 tab PRN Reason: Dyspepsia HYDROcodone/APAP 5-325MG [[place] 5-325] 1 tab PO Q4HR PRN 3 Days #18 tab PRN Reason: Pain Famotidine 20 mg PO BID #60 tab Continue Metoprolol Succinate 200 mg PO BID Atorvastatin [Lipitor] 40 mg PO HS Losartan [Cozaar] 25 mg PO DAILY Rivaroxaban [Xarelto] 20 mg PO DAILY Mexiletine [Mexitil] 150 mg PO Q8H Ranolazine [Ranolazine ER] 500 mg PO Q12HR Furosemide [Lasix] 20 mg PO DAILY PRN PRN Reason: Edema Aspirin EC [Ecotrin Low Dose] 81 mg PO DAILY Discontinued Ibuprofen [Motrin] 800 mg PO Q8H PRN PRN Reason: Pain Discharge Medication List Aspirin EC [Ecotrin Low Dose] 81 mg PO DAILY 11/17/20 [History] Atorvastatin [Lipitor] 40 mg PO HS 11/17/20 [History] Furosemide [Lasix] 20 mg PO DAILY PRN 11/17/20 [History] Losartan [Cozaar] 25 mg PO DAILY 11/17/20 [History] Metoprolol Succinate 200 mg PO BID 11/17/20 [History] Mexiletine [Mexitil] 150 mg PO Q8H 11/17/20 [History] Ranolazine [Ranolazine ER] 500 mg PO Q12HR 11/17/20 [History] Rivaroxaban [Xarelto] 20 mg PO DAILY 11/17/20 [History] Calcium Carbonate [Tums Ultra Strength] 500 mg PO QID PRN #30 tab 11/19/20 [Rx] Famotidine 20 mg PO BID #60 tab 11/19/20 [Rx] HYDROcodone/APAP 5-325MG [[place] 5-325] 1 tab PO Q4HR PRN 3 Days #18 tab 11/19/20 [Rx] Pantoprazole [Protonix] 40 mg PO DAILY #30 tab 11/19/20 [Rx] Follow up Appointment(s)/Referral(s): Morena Price MD [Primary Care Provider] - 11/24/20 9:00 am Dee Bustillo MD [STAFF PHYSICIAN] - 11/25/20 12:00 pm Activity/Diet/Wound Care/Special Instructions: [facility] - order for hospital bed faxed to [facility] Patient requires a hospital bed to keep head of bed elevated greater than 30 degrees most of the time to manage manage orthopnea from CHF Discharge Disposition: HOME SELF-CARE
== END 2020-11-19 13:52 | disposition home or self-care (01) | DRG 313 ==
LOC: EC 00:56 → 3SCARD 03:38
PROVIDERS: ADMIT Internal Medicine; ATTEND Internal Medicine
PROC: 05HF33Z Insertion of Infusion Device into Left Cephalic Vein, Percutaneous Approach (ICD-10-PCS; principal; 2020-11-17 07:30)
DX: R07.89 Other chest pain (principal); I42.1 Obstructive hypertrophic cardiomyopathy; I50.22 Chronic systolic (congestive) heart failure; K86.1 Other chronic pancreatitis; Z20.822 Contact with and (suspected) exposure to COVID-19; I08.1 Rheumatic disorders of both mitral and tricuspid valves; I11.0 Hypertensive heart disease with heart failure; I25.2 Old myocardial infarction; I27.22 Pulmonary hypertension due to left heart disease; Z79.01 Long term (current) use of anticoagulants; Z79.82 Long term (current) use of aspirin; Z79.899 Other long term (current) drug therapy; Z86.718 Personal history of other venous thrombosis and embolism; Z87.891 Personal history of nicotine dependence; Z98.1 Arthrodesis status; Z95.810 Presence of automatic (implantable) cardiac defibrillator; Z95.2 Presence of prosthetic heart valve; Z90.49 Acquired absence of other specified parts of digestive tract; I44.7 Left bundle-branch block, unspecified; F43.10 Post-traumatic stress disorder, unspecified; D50.9 Iron deficiency anemia, unspecified; D72.829 Elevated white blood cell count, unspecified; R79.89 Other specified abnormal findings of blood chemistry; R74.8 Abnormal levels of other serum enzymes
CPT/HCPCS: 36410; 36415; 71046; 76937; 78582; 80053; 80061; 82150; 82728; 83540; 83550; 83690; 83735; 83880; 84484; 85025; 85379; 85610; 85730; 87635; 93005; 93306; 94760; 96374; 96375; 99285

== ENCOUNTER 2020-12-16 23:10 | Inpatient (IN) | payer OTHER ==
--- NOTE | 2020-12-16 23:46 | ED ---
Recheck HPI - General Chief Complaint: Recheck/Abnormal Lab/Rx Stated Complaint: Chest Pain Time Seen by Provider: 12/16/20 23:12 Source: patient, EMS, RN notes reviewed, old records reviewed Mode of arrival: EMS Limitations: no limitations - History of Present Illness Initial Comments: This 45-year-old female to the emergency department for evaluation. Patient is safe for evaluation of chest pain, she is a transfer from outside Hospital for chest pain. [facility]. She is currently being transfused little hemoglobin. Patient states her pain is well-controlled currently. Patient has history of HOCM with surgery young age. MD Complaint: abnormal lab (Hemoglobin) -: unknown Returns Today for: Called Because of Abnormal Lab/Test, persistent/worsening pain related to initial visit Symptoms Since Prior Visit: worsening pain Context: called for abnormal lab result Associated Symptoms: chest pain, shortness of breath, malaise Treatments Prior to Arrival: other (Blood transfusion) - Related Data Home Medications Medication Instructions Recorded Confirmed Aspirin EC [Ecotrin Low Dose] 81 mg PO DAILY 11/17/20 11/17/20 Atorvastatin [Lipitor] 40 mg PO HS 11/17/20 11/17/20 Furosemide [Lasix] 20 mg PO DAILY PRN 11/17/20 11/17/20 Losartan [Cozaar] 25 mg PO DAILY 11/17/20 11/17/20 Metoprolol Succinate 200 mg PO BID 11/17/20 11/17/20 Mexiletine [Mexitil] 150 mg PO Q8H 11/17/20 11/17/20 Ranolazine [Ranolazine ER] 500 mg PO Q12HR 11/17/20 11/17/20 Rivaroxaban [Xarelto] 20 mg PO DAILY 11/17/20 11/17/20 Previous Rx's Medication Instructions Recorded Calcium Carbonate [Tums Ultra 500 mg PO QID PRN #30 tab 11/19/20 Strength] Famotidine 20 mg PO BID #60 tab 11/19/20 Ferrous Gluconate 324 mg PO DAILY #30 tablet 11/19/20 HYDROcodone/APAP 5-325MG [[place] 1 tab PO Q4HR PRN 3 Days #18 tab 11/19/20 5-325] Pantoprazole [Protonix] 40 mg PO DAILY #30 tab 11/19/20 Allergies Allergy/AdvReac Type Severity Reaction Status Date / Time digoxin Allergy Anaphylaxis Verified 12/16/20 23:24 Iodinated Contrast Media Allergy Anaphylaxis Verified 12/16/20 23:24 Penicillins Allergy Anaphylaxis Verified 12/16/20 23:24 erythromycin base AdvReac Rash/Hives Verified 12/16/20 23:24 nitroglycerin AdvReac Dyspnea Verified 12/16/20 23:24 sulfamethoxazole AdvReac Rash/Hives Verified 12/16/20 23:24 [From Bactrim] trimethoprim [From Bactrim] AdvReac Rash/Hives Verified 12/16/20 23:24 Review of Systems ROS Statement: Those systems with pertinent positive or pertinent negative responses have been documented in the HPI. ROS Other: All systems not noted in ROS Statement are negative. Past Medical History Past Medical History: Chest Pain / Angina, Heart Failure, Hypertension, Myocardial Infarction ([place]) Additional Past Medical History / Comment(s): Hypertrophic obstructive myopathy, ISABELLA, Dystolic CHF, PE bilateral lung, DVT bilateral legs, PE, History of Any Multi-Drug Resistant Organisms: None Reported Past Surgical History: Cardiac Valve Replacement, Section, Cholecystectomy, Orthopedic Surgery, Pacemaker Additional Past Surgical History / Comment(s): back fusion, stent placement Past Anesthesia/Blood Transfusion Reactions: No Reported Reaction Type of Cardiac Device: Permanent Pacemaker, AICD Device Placement Date:: January 04, 2019 Past Psychological History: PTSD Smoking Status: Former smoker Past Alcohol Use History: None Reported Past Drug Use History: None Reported - Past Family History family Family Medical History: No Reported History General Exam Limitations: no limitations General appearance: alert, in no apparent distress Head exam: Present: atraumatic, normocephalic, normal inspection Eye exam: Present: normal appearance, PERRL, EOMI. Absent: scleral icterus, conjunctival injection, periorbital swelling ENT exam: Present: normal exam, mucous membranes moist Neck exam: Present: normal inspection. Absent: tenderness, meningismus, lymphadenopathy Respiratory exam: Present: normal lung sounds bilaterally. Absent: respiratory distress, wheezes, rales, rhonchi, stridor Cardiovascular Exam: Present: regular rate, normal rhythm, normal heart sounds. Absent: systolic murmur, diastolic murmur, rubs, gallop, clicks GI/Abdominal exam: Present: soft, normal bowel sounds. Absent: distended, tenderness, guarding, rebound, rigid Extremities exam: Present: normal inspection, full ROM, normal capillary refill. Absent: tenderness, pedal edema, joint swelling, calf tenderness Back exam: Present: normal inspection Neurological exam: Present: alert, oriented X3, CN II-XII intact Psychiatric exam: Present: normal affect, normal mood Skin exam: Present: warm, dry, intact, normal color. Absent: rash Course Vital Signs 12/16/20 23:11 Temperature 98.6 F Pulse Rate 85 Respiratory 18 Rate Blood Pressure 136/96 O2 Sat by Pulse 92 L Oximetry - Reevaluation(s) Reevaluation #1: 12/17/20 00:11 Medical record is reviewed Reevaluation #2: 12/17/20 00:11 Patient's transfer paperwork is also been reviewed Reevaluation #3: 12/17/20 00:12 Patient currently has adequate pain control - Consultations Consultation #1: Spoke with Dr. Jensen agrees to admit this patient Medical Decision Making - Medical Decision Making 45 female DF for evaluation of chest pain today she was transferred to our facility for anemia the transfusion history of HOCM hypertensive urgency. Patient be admitted for cardiology monitoring of hemoglobin - EKG Data -: EKG Interpreted by Me (EKG shows NSR 87 [place] 158 QRS 152 QTc 524) Disposition Clinical Impression: Chest pain, Elevated troponin I level, Anemia, Hypertensive urgency Disposition: ADMITTED IP TO THIS HOSP Condition: Fair Is patient prescribed a controlled substance at d/c from ED?: No Referrals: Morena Price MD [Primary Care Provider] - 1-2 days
[2020-12-16] MEDS ORDERED: ASPIRIN 81 MG PO STA (23:59)
[2020-12-16] MEDS ORDERED: NITROGLYCERIN SL TABS 0.4 MG TAB SUBLINGUAL PRN (23:59)
[2020-12-17] MEDS ORDERED: HYDROmorphone 1 MG/ML 1 ML SYRINGE IVP STA (00:16)
[2020-12-17] MEDS ORDERED: HYDROmorphone 1 MG/ML 1 ML SYRINGE IVP PRN (00:16)
[2020-12-17] MEDS: MEXILETINE 150 MG CAP PO SCH ×3 (08:36→23:08)
[2020-12-17] MEDS: RANOLAZINE 500 MG TAB.ER.12H PO SCH ×2 (08:37→21:39)
[2020-12-17] MEDS: METOPROLOL SUCCINATE (ER) 100 MG TAB.ER.24H PO SCH ×2 (08:37→21:39)
[2020-12-17] MEDS: LOSARTAN 25 MG TAB PO SCH (08:37)
[2020-12-17] MEDS ORDERED: ASPIRIN 325 MG TAB PO SCH (09:00)
--- NOTE | 2020-12-17 09:01 | P.CRDCN ---
History of Present Illness Consult date: 12/17/20 Chief complaint: Chest pain History of present illness: This is a very pleasant 45-year-old female patient with a past medical history significant for hypertrophic cardiomyopathy and status post myomectomy was performed at the [facility] and also status post an AICD as well as history of coronary embolism and DVT who was transferred from another hospital to [facility] for further evaluation. The patient presented to the hospital complaining of chest discomfort. At the initial hospital she was found to be anemic with a hemoglobin 6. Subsequently she was received one unit of packed RBC and then she was transferred for further evaluation. Her CBC this morning continues to be pending. She was diagnosed with anemia in the past and she underwent according to her upper and lower endoscopy and that did not show anything. Reviewing the hemoglobin from the other hospital showed that she is having microcytic hypochromic anemia. She stated that in the past she was diagnosed with iron deficiency and she was placed on iron. We consulted to see the patient because of abnormal troponin which seems to be flat across support. Currently the patient is chest pain-free and her pain has improved after she received the blood. Please note that the patient was on oral anticoagulation for the DVT/PE. The EKG showed sinus rhythm with LBBB. The patient regularly follows with [facility] regarding her hypertrophic cardiomyopathy beach she has significant family history of hypertrophic cardiomyopathy involving her brother and also her kids were diagnosed with hypertrophic cardiomyopathy. Past Medical History Past Medical History: Chest Pain / Angina, Heart Failure, Hypertension Additional Past Medical History / Comment(s): Hypertrophic obstructive myopathy, ISABELLA, Dystolic CHF, PE bilateral lung, DVT bilateral legs, PE, History of Any Multi-Drug Resistant Organisms: None Reported Past Surgical History: Cardiac Valve Replacement, Section, Cholecystectomy, Orthopedic Surgery, Pacemaker Additional Past Surgical History / Comment(s): back fusion, stent placement Past Anesthesia/Blood Transfusion Reactions: No Reported Reaction Type of Cardiac Device: Permanent Pacemaker, AICD Device Placement Date:: January 04, 2019 Past Psychological History: PTSD Smoking Status: Former smoker Past Alcohol Use History: None Reported Past Drug Use History: None Reported - Past Family History family Family Medical History: No Reported History Medications and Allergies Home Medications Medication Instructions Recorded Confirmed Type Aspirin EC [Ecotrin Low Dose] 81 mg PO DAILY 11/17/20 12/17/20 History Atorvastatin [Lipitor] 40 mg PO HS 11/17/20 12/17/20 History Furosemide [Lasix] 20 mg PO DAILY PRN 11/17/20 12/17/20 History Losartan [Cozaar] 25 mg PO DAILY 11/17/20 12/17/20 History Metoprolol Succinate 200 mg PO BID 11/17/20 12/17/20 History Mexiletine [Mexitil] 150 mg PO Q8H 11/17/20 12/17/20 History Ranolazine [Ranolazine ER] 500 mg PO Q12HR 11/17/20 12/17/20 History Rivaroxaban [Xarelto] 20 mg PO DAILY 11/17/20 12/17/20 History Calcium Carbonate [Tums Ultra 500 mg PO QID PRN #30 tab 11/19/20 12/17/20 Rx Strength] Famotidine 20 mg PO BID #60 tab 11/19/20 12/17/20 Rx Ferrous Gluconate 324 mg PO DAILY #30 tablet 11/19/20 12/17/20 Rx HYDROcodone/APAP 5-325MG [Lamoni 1 tab PO Q4HR PRN 3 Days #18 tab 11/19/20 12/17/20 Rx 5-325] Pantoprazole [Protonix] 40 mg PO DAILY #30 tab 11/19/20 12/17/20 Rx Allergies Allergy/AdvReac Type Severity Reaction Status Date / Time digoxin Allergy Anaphylaxis Verified 12/17/20 07:19 erythromycin base Allergy Rash/Hives Verified 12/17/20 07:19 Iodinated Contrast Media Allergy Anaphylaxis Verified 12/17/20 07:19 Penicillins Allergy Anaphylaxis Verified 12/17/20 07:19 sulfamethoxazole Allergy Rash/Hives Verified 12/17/20 07:19 [From Bactrim] trimethoprim [From Bactrim] Allergy Rash/Hives Verified 12/17/20 07:19 nitroglycerin AdvReac Dyspnea Verified 12/17/20 07:19 Physical Exam Vitals: Vital Signs Temp Pulse Pulse Resp BP BP Pulse Ox 12/17/20 04:00 98.3 F 90 20 128/82 99 12/17/20 02:02 88 L 12/17/20 02:01 98.7 F 99 20 114/57 95 12/17/20 00:47 75 18 151/91 98 12/16/20 23:11 98.6 F 85 18 136/96 92 L Intake and Output 12/16/20 12/17/20 12/17/20 22:59 06:59 14:59 Intake Total 0 Balance 0 Intake: Oral 0 Other: # Voids 2 Weight 105.9 kg - Constitutional General appearance: no acute distress - Respiratory Respiratory: bilateral: CTA - Cardiovascular Rhythm: regular Heart sounds: normal: S1, S2 Abnormal Heart Sounds: systolic murmur Results Cardiac Enzymes 12/17/20 12/17/20 Range/Units 00:46 03:40 Troponin I 0.040 H* 0.037 H* (0.000-0.034) ng/mL Current Medications Generic Name Dose Route Start Last Admin Trade Name Freq PRN Reason Stop Dose Admin Atorvastatin Calcium 40 mg 12/17/20 21:00 Atorvastatin 40 Mg Tab PO HS DENIA Hydromorphone HCl 1 mg 12/17/20 00:16 12/17/20 04:04 Hydromorphone 1 Mg/Ml 1 Ml Syringe IVP 1 mg Q4HR PRN Administration Pain Losartan Potassium 25 mg 12/17/20 09:00 12/17/20 08:37 Losartan 25 Mg Tab PO 25 mg DAILY DENIA Administration Metoprolol Succinate 200 mg 12/17/20 09:00 12/17/20 08:37 Metoprolol Succinate (Er) 100 Mg Tab.Er.24h PO 200 mg BID DENIA Administration Mexiletine HCl 150 mg 12/17/20 08:00 12/17/20 08:36 Mexiletine 150 Mg Cap PO 150 mg Q8HR DENIA Administration Nitroglycerin 0.4 mg 12/16/20 23:59 Nitroglycerin Sl Tabs 0.4 Mg Tab SUBLINGUAL Q5M PRN Chest Pain Ranolazine 500 mg 12/17/20 09:00 12/17/20 08:37 Ranolazine 500 Mg Tab.Er.12h PO 500 mg Q12HR DENIA Administration Intake and Output 12/16/20 12/17/20 12/17/20 22:59 06:59 14:59 Intake Total 0 Balance 0 Intake: Oral 0 Other: # Voids 2 Weight 105.9 kg Assessment and Plan Assessment: Assessment #1 anemia likely to be blood loss related #2 evidence of myocardial injury secondary to blood loss anemia #3 hypertrophic cardiomyopathy and status post myomectomy and mitral valve repair #4 status post AICD for primary prevention of sudden cardiac #5 history of DVT/PE Plan #1 she received one unit of packed RBC #2 continue monitoring the hemoglobin #3 avoid any dehydration/volume depletion #4 consider medical treatment for the abnormal troponin which is likely type II myocardial infarction #5 obtain an echocardiogram was Doppler #6 avoid any low blood pressure Thank you for allowing us participate in her care
[2020-12-17] MEDS ORDERED: CALCIUM CARBONATE 500 MG CHEWABLE PO PRN (10:34)
[2020-12-17] MEDS: PANTOPRAZOLE 40 MG TABLET PO SCH (12:18)
[2020-12-17] MEDS: FERROUS SULFATE 325 MG TAB PO SCH (12:18)
[2020-12-17] MEDS: HYDROcodone/APAP 5-325MG 1 EACH TAB PO PRN ×3 (13:52→23:08)
--- NOTE | 2020-12-17 14:25 | XR ---
EXAMINATION TYPE: XR chest 2V DATE OF EXAM: 12/17/2020 COMPARISON: Chest x-ray 11/17/2020 HISTORY: Shortness of breath TECHNIQUE: Frontal and lateral views of the chest are obtained. FINDINGS: There is no focal air space opacity, pleural effusion, or pneumothorax seen. The cardiac silhouette size is stable, possibly borderline enlarged, rotation may accentuate the appearance. Pat ient is post median sternotomy. There is a generator in the left pectoral region, lesions in the righ t atrium and ventricle. The osseous structures are intact. Surgical clips are present in the upper ab domen. IMPRESSION: Stable exam. Borderline cardiomegaly suspected.
[2020-12-17 14:47] LABS: Anisocytosis Slight; Basophils % (A) 1 %; Eosinophils # (A) 0.2 k/uL (0-0.7); Eosinophils % (A) 3 %; HCT 30.3 % (34.0-46.0); HGB 8.9 gm/dL (11.4-16.0); Hypochromasia Marked; Lymphocytes # (A) 1.4 k/uL (1.0-4.8); Lymphocytes % (A) 17 %; MCH 21.2 pg (25.0-35.0); MCHC 29.3 g/dL (31.0-37.0); MCV 72.6 fL (80.0-100.0); Microcytosis Moderate; Monocytes # (A) 0.5 k/uL (0-1.0); Monocytes % (A) 6 %; Neutrophils % (A) 71 %; Platelet Count 300 k/uL (150-450); Poikilocytosis Slight; RBC 4.18 m/uL (3.80-5.40); WBC 8.4 k/uL (3.8-10.6)
[2020-12-17 15:00] LABS: ALT 15 U/L (4-34); AST 25 U/L (14-36); African American GFR (CKD) >90 (>60 ml/min/1.73 sqM); Alkaline Phosphatase 63 U/L (38-126); Anion Gap 10 mmol/L; Blood Urea Nitrogen 13 mg/dL (7-17); Calcium 9.1 mg/dL (8.4-10.2); Carbon Dioxide 22 mmol/L (22-30); Chloride 103 mmol/L (98-107); Glucose 122 mg/dL (74-99); Non-African American GFR(CKD) >90 (>60 ml/min/1.73 sqM); Potassium 4.8 mmol/L (3.5-5.1); Sodium 135 mmol/L (137-145); Total Bilirubin 0.5 mg/dL (0.2-1.3); Total Protein 6.9 g/dL (6.3-8.2)
[2020-12-17 15:49] LABS: Chol/HDL Ratio 5.41 Ratio; HDL Cholesterol 30.5 mg/dL (40.00-60.00); LDL Cholesterol,Calculated 97.1 mg/dL (0.0-131.0); VLDL Calculation 37.4 mg/dL (5.00-40.00)
[2020-12-17] MEDS: RIVAROXABAN 20 MG TAB PO SCH (16:54)
--- NOTE | 2020-12-17 18:20 | P.HPIM ---
History of Present Illness H&P Date: 12/17/20 Chief Complaint: Short of breath This is a pleasant 45-year-old patient with extensive cardiac history. 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 She last followed with them in 2019. She does not have transported because of COVID-19 but has not been able to follow up with them. Though she spoken to them on the phone. She also has , her switching clerk in [place]. Patient has a history of known hypertrophic cardiomyopathy for which she underwent septal myomectomy and also mitral valve valvuloplasty. She also has ICD because of brother had sudden cardiac . In 2019 patient had DVT and a PE for which patient is a xarelto. Patient over 2 years as a multiple episodes of anemia is. And no cause has been found. Last year patient did undergo EGD and colonoscopy in [place] and was unremarkable. Yesterday patient came short of breath or chest pressure lasted for good 3 hours and also going up to the arms and back. And patient presented here. Patient at baseline has orthopnea and gets short of breath and laying. She presented initially to [facility] found over hemoglobin of 6.4. a unit of blood was ordered. Patient denies any black stools. Review of systems: GEN.: Tired EYES: None HEENT: None NECK: None RESPIRATORY: As above CARDIOVASCULAR: As above GASTROINTESTINAL: None GENITOURINARY: None MUSCULOSKELETAL: None LYMPHATICS: None HEMATOLOGICAL: None PSYCHIATRY: None NEUROLOGICAL: None Past medical history to include: Hypertrophic cardiomyopathy with septal myomectomy, mitral valve valvuloplasty, PTSD, DVT and PE in 2020, GERD, hyperlipidemia, recurrent anemia as a cause of which has not been found, pulmonary embolism. ICD. Lower back surgery. Social history: Patient is a boyfriend. Does not smoke or drink alcohol. No recreational drugs. Family history: Brother had sudden cardiac Physical examination: VITAL SIGNS: 98.6, 85, 18, 136.96, 92% room air GENERAL:. BMI 40.1, reclining in bed, tired slight shortness of breath. EYES: Pupils equal. Conjunctiva normal. HEENT: External appearance of nose and ears normal, oral cavity grossly normal. NECK: JVD not raised; masses not palpable. HEART: First and second heart sounds are normal; no edema systolic murmur. LUNGS: Respiratory rate increased; clear to auscultation. ABDOMEN: Soft, nontender, liver spleen not palpable, no masses palpable. PSYCH: Alert and oriented x3; mood and affect normal. NEUROLOGICAL: Cranial nerves grossly intact; no facial asymmetry, power and sensation grossly intact. LYMPHATICS: No lymph nodes palpable in the axilla and neck INVESTIGATIONS, reviewed in the clinical context: WBC 8.4 hemoglobin 8.9 platelets 300 sodium 135 potassium 4.8 BUN 13 creatinine is 0.71 Troponin I 0.0., 0.037 LDL 97 EKG tracing personally reviewed by me-normal sinus rhythm, left bundle-branch block, rate 87 Chest x-ray film personally reviewed by me-cardiomegaly. No obvious venous prominence. Previous testin-D echocardiogram: [November 17] Severe concentric LVH, EF 55-60% left ventricular outflow obstruction severe mitral regurgitation. Yjrn-pu-[id number] tricuspid regurgitation. Ahub-md-vemhnkik pulmonary hypertension Assessment and plan: -Patient lives shortness of breath and chest pain. Likely angina presents per dictated by significant anemia. -Acute anemia. 6.5 [facility]. Received a unit of blood. This is at least a 4 time she's had this. Workup has been negative. Denies any black stools. EGD" be lasted [facility] was unremarkable. Patient has received a unit of blood. Hemoglobin 8.2 -Hypertrophic cardiomyopathy with septal myomectomy. Being followed by unit was to [place] -Severe mitral regurgitation from recent echocardiogram. With a prior history of valvuloplasty. 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 -Chronic DVT and PE in 2019. Continue with xarelto. Patient has no outward evidence of any acute bleeding. -GERD Protonix 40 mg daily -Hyperlipidemia Lipitor 40 mg daily at bedtime -Morbid obesity BMI 40.1. Weight loss measures -Left bundle-branch block - Patient has received a unit of blood. Hemoglobin is,. Home medications resumed. On telemetry. Being followed by cardiology. Patient has chronic orthopnea. Patient and he had workup for the anemia in the past. We'll let the patient follow-up at [place]. no evidence of any acute bleed at the present time. Care was discussed with the patient. Questions answered. Past Medical History Past Medical History: Chest Pain / Angina, Heart Failure, Hypertension Additional Past Medical History / Comment(s): Hypertrophic obstructive myopathy, ISABELLA, Dystolic CHF, PE bilateral lung, DVT bilateral legs, PE, History of Any Multi-Drug Resistant Organisms: None Reported Past Surgical History: Cardiac Valve Replacement, Section, Cholecystectomy, Orthopedic Surgery, Pacemaker Additional Past Surgical History / Comment(s): back fusion, stent placement Past Anesthesia/Blood Transfusion Reactions: No Reported Reaction Type of Cardiac Device: Permanent Pacemaker, AICD Device Placement Date:: January 04, 2019 Past Psychological History: PTSD Smoking Status: Former smoker Past Alcohol Use History: None Reported Past Drug Use History: None Reported - Past Family History family Family Medical History: No Reported History Medications and Allergies Home Medications Medication Instructions Recorded Confirmed Type Aspirin EC [Ecotrin Low Dose] 81 mg PO DAILY 11/17/20 12/17/20 History Atorvastatin [Lipitor] 40 mg PO HS 11/17/20 12/17/20 History Furosemide [Lasix] 20 mg PO DAILY PRN 11/17/20 12/17/20 History Losartan [Cozaar] 25 mg PO DAILY 11/17/20 12/17/20 History Metoprolol Succinate 200 mg PO BID 11/17/20 12/17/20 History Mexiletine [Mexitil] 150 mg PO Q8H 11/17/20 12/17/20 History Ranolazine [Ranolazine ER] 500 mg PO Q12HR 11/17/20 12/17/20 History Rivaroxaban [Xarelto] 20 mg PO DAILY 11/17/20 12/17/20 History Calcium Carbonate [Tums Ultra 500 mg PO QID PRN #30 tab 11/19/20 12/17/20 Rx Strength] Famotidine 20 mg PO BID #60 tab 11/19/20 12/17/20 Rx Ferrous Gluconate 324 mg PO DAILY #30 tablet 11/19/20 12/17/20 Rx HYDROcodone/APAP 5-325MG [Asotin 1 tab PO Q4HR PRN 3 Days #18 tab 11/19/20 12/17/20 Rx 5-325] Pantoprazole [Protonix] 40 mg PO DAILY #30 tab 11/19/20 12/17/20 Rx Allergies Allergy/AdvReac Type Severity Reaction Status Date / Time digoxin Allergy Anaphylaxis Verified 12/17/20 07:19 erythromycin base Allergy Rash/Hives Verified 12/17/20 07:19 Iodinated Contrast Media Allergy Anaphylaxis Verified 12/17/20 07:19 Penicillins Allergy Anaphylaxis Verified 12/17/20 07:19 sulfamethoxazole Allergy Rash/Hives Verified 12/17/20 07:19 [From Bactrim] trimethoprim [From Bactrim] Allergy Rash/Hives Verified 12/17/20 07:19 nitroglycerin AdvReac Dyspnea Verified 12/17/20 07:19 Physical Exam Vitals: Vital Signs Temp Pulse Pulse Resp BP BP Pulse Ox 12/17/20 08:00 98 F 87 20 151/86 100 12/17/20 04:00 98.3 F 90 20 128/82 99 12/17/20 02:02 88 L 12/17/20 02:01 98.7 F 99 20 114/57 95 12/17/20 00:47 75 18 151/91 98 12/16/20 23:11 98.6 F 85 18 136/96 92 L Intake and Output 12/16/20 12/17/20 12/17/20 22:59 06:59 14:59 Intake Total 0 120 Balance 0 120 Intake: Oral 0 120 Other: # Voids 2 Weight 105.9 kg Results CBC & Chem 7: 12/17/20 14:30 12/17/20 14:30 Labs: Abnormal Lab Results - Last 24 Hours (Table) 12/17/20 12/17/20 Range/Units 00:46 03:40 Troponin I 0.040 H* 0.037 H* (0.000-0.034) ng/mL Thrombosis Risk Factor Assmnt - Choose All That Apply Any of the Below Risk Factors Present?: Yes Each Factor Represents 1 point: Age 41-60 years, Heart failure (<1month), Swollen legs (current) Each Risk Factor Represents 3 Points: History of DVT/PE Thrombosis Risk Factor Assessment Total Risk Factor Score: 6 Thrombosis Risk Factor Assessment Level: High Risk
[2020-12-17] MEDS ORDERED: ATORVASTATIN 40 MG TAB PO SCH (21:00)
[2020-12-18] MEDS: HYDROcodone/APAP 5-325MG 1 EACH TAB PO PRN ×3 (03:06→12:28)
[2020-12-18 03:23] VITALS: RESP 18
[2020-12-18] MEDS: RANOLAZINE 500 MG TAB.ER.12H PO SCH (05:33)
[2020-12-18] MEDS: PANTOPRAZOLE 40 MG TABLET PO SCH (06:30)
[2020-12-18] MEDS: MEXILETINE 150 MG CAP PO SCH (08:16)
[2020-12-18] MEDS: RIVAROXABAN 20 MG TAB PO SCH (08:16)
[2020-12-18] MEDS: FERROUS SULFATE 325 MG TAB PO SCH (08:17)
[2020-12-18] MEDS: LOSARTAN 25 MG TAB PO SCH (08:17)
[2020-12-18] MEDS: METOPROLOL SUCCINATE (ER) 100 MG TAB.ER.24H PO SCH (08:17)
[2020-12-18 09:59] LABS: Anisocytosis Slight; Basophils % (A) 1 %; Eosinophils # (A) 0.2 k/uL (0-0.7); Eosinophils % (A) 3 %; HGB 8.9 gm/dL (11.4-16.0); Hypochromasia Marked; Lymphocytes # (A) 1.6 k/uL (1.0-4.8); Lymphocytes % (A) 21 %; MCH 21.5 pg (25.0-35.0); MCHC 29.6 g/dL (31.0-37.0); MCV 72.6 fL (80.0-100.0); Mean Platelet Volume 7.9; Microcytosis Moderate; Monocytes # (A) 0.4 k/uL (0-1.0); Monocytes % (A) 5 %; Neutrophils % (A) 67 %; Platelet Count 279 k/uL (150-450); Poikilocytosis Slight; RBC 4.14 m/uL (3.80-5.40); RDW 19.5 % (11.5-15.5); WBC 7.5 k/uL (3.8-10.6)
[2020-12-18 10:03] LABS: African American GFR (CKD) >90 (>60 ml/min/1.73 sqM); Anion Gap 9 mmol/L; Blood Urea Nitrogen 14 mg/dL (7-17); Carbon Dioxide 25 mmol/L (22-30); Chloride 101 mmol/L (98-107); Glucose 118 mg/dL (74-99); Non-African American GFR(CKD) >90 (>60 ml/min/1.73 sqM); Potassium 4.5 mmol/L (3.5-5.1); Sodium 135 mmol/L (137-145)
--- NOTE | 2020-12-18 11:11 | XR ---
EXAMINATION TYPE: XR chest 1V portable DATE OF EXAM: 12/18/2020 COMPARISON: 12/17/2020 HISTORY: Chest pain TECHNIQUE: Single frontal view of the chest is obtained. FINDINGS: Cardiac device and postsurgical changes are noted with no pneumothorax or pleural effusion . Mildly coarsened interstitium. Osseous structures stable. IMPRESSION: 1. Cardiomegaly correlate for mild central venous congestion.
--- NOTE | 2020-12-18 11:57 | P.PN ---
Subjective Progress Note Date: 12/18/20 Principal diagnosis: Abnormal cardiac enzymes This is a very pleasant 45-year-old female patient with a past medical history significant for hypertrophic cardiomyopathy and status post post myomectomy as well as mitral valve repair and also status post an AICD for primary prevention and history of DVT/PE was admitted to the hospital with anemia and she received blood. The patient was seen this morning. She was experiencing chest discomfort seems to be atypical for angina. We ordered a chest x-ray which was reviewed and showed no evidence of pneumothorax. The patient is asking for pain medication. Otherwise hemodynamically she is stable. The hemoglobin is stable as well. When she presented to the emergency department her hemoglobin was around 6 and the hemoglobin this morning is 8.9. We believe that the abnormal troponin is likely secondary to type II myocardial infarction and mismatch. Please note that the patient underwent a workup for the anemia in the past and she underwent an upper and lower endoscopy and that came in to be unremarkable Objective - Vital Signs Vital signs: Vital Signs Temp 97.8 F 12/18/20 08:00 Pulse 64 12/18/20 11:34 Resp 18 12/18/20 08:00 BP 106/66 12/18/20 08:00 Pulse Ox 99 12/18/20 08:00 Intake & Output 12/17/20 12/18/20 12/18/20 18:59 06:59 18:59 Intake Total 300 240 Output Total 100 Balance 300 140 Weight 106 kg Intake: Oral 300 240 Output: Urine 100 Other: # Voids 1 - Constitutional General appearance: Present: no acute distress - Respiratory Respiratory: bilateral: CTA - Cardiovascular Rhythm: regular Heart sounds: normal: S1, S2 Abnormal Heart Sounds: Present: systolic murmur - Labs CBC & Chem 7: 12/18/20 09:05 12/18/20 09:05 Labs: Abnormal Lab Results - Last 24 Hours (Table) 12/17/20 12/17/20 12/17/20 Range/Units 03:40 14:30 14:30 Hgb 8.9 L (11.4-16.0) gm/dL Hct 30.3 L (34.0-46.0) % MCV 72.6 L (80.0-100.0) fL MCH 21.2 L (25.0-35.0) pg MCHC 29.3 L (31.0-37.0) g/dL RDW 19.0 H (11.5-15.5) % Sodium 135 L (137-145) mmol/L Glucose 122 H (74-99) mg/dL Triglycerides 187.00 H (0.00-149.00) mg/dL HDL Cholesterol 30.50 L (40.00-60.00) mg/dL 12/18/20 12/18/20 Range/Units 09:05 09:05 Hgb 8.9 L (11.4-16.0) gm/dL Hct 30.0 L (34.0-46.0) % MCV 72.6 L (80.0-100.0) fL MCH 21.5 L (25.0-35.0) pg MCHC 29.6 L (31.0-37.0) g/dL RDW 19.5 H (11.5-15.5) % Sodium 135 L (137-145) mmol/L Glucose 118 H (74-99) mg/dL Triglycerides (0.00-149.00) mg/dL HDL Cholesterol (40.00-60.00) mg/dL Assessment and Plan Assessment: Assessment #1 anemia likely to be blood loss related #2 evidence of myocardial injury secondary to blood loss anemia #3 hypertrophic cardiomyopathy and status post myomectomy and mitral valve repair #4 status post AICD for primary prevention of sudden cardiac #5 history of DVT/PE #6 chest discomfort seems to be atypical for angina Plan #1 the chest x-ray did not show any pneumothorax #2 continue monitor the hemoglobin #3 obtain more serial cardiac enzymes #4 follow-up with the patient
[2020-12-18 12:23] VITALS: BP 114/77; PULSE 65; TEMP 97.9
--- NOTE | 2020-12-18 17:18 | P.DS ---
Providers Date of admission: 12/17/20 00:00 Expected date of discharge: 12/18/20 Attending physician: Ever Jensen Consults: 12/16/20 23:59 Consult Physician Urgent Consulting Provider: Andressa Blanton Consult Reason/Comments: LEWIS Do you want consulting provider notified?: Yes Primary care physician: [facility] Course: Chief Complaint: Short of breath This is a pleasant 45-year-old patient with extensive cardiac history. Patient does have a parent aide at [facility]. She last followed with them in 2019. She does not have transported because of COVID-19 but has not been able to follow up with them. Though she spoken to them on the phone. She also has , her parent aide in [place]. Patient has a history of known hypertrophic cardiomyopathy for which she underwent septal myomectomy and also mitral valve valvuloplasty. She also has ICD because of brother had sudden cardiac . In 2019 patient had DVT and a PE for which patient is a xarelto. Patient over 2 years as a multiple episodes of anemia is. And no cause has been found. Last year patient did undergo EGD and colonoscopy in [place] and wa s unremarkable. Yesterday patient came short of breath or chest pressure lasted for good 3 hours and also going up to the arms and back. And patient presented here. Patient at baseline has orthopnea and gets short of breath and laying. She presented initially to [facility] found over hemoglobin of 6.4. a unit of blood was ordered. Patient denies any black stools. Patient received 2 units of blood. Hemoglobin is, to 8.9. Patient has had extensive workup for GI in the past. Patient is told to follow up with her own GI doctor in [place]. No signs of overt bleeding here. December 18: Breathing is better. Patient seen by cardiology this morning. Repeat chest x-ray was done. Patient is to follow-up with her own parent aide [place]. Manager Administrative: Dr. Miller from cardiology Past medical history to include: Hypertrophic cardiomyopathy with septal myomectomy, mitral valve valvuloplasty, PTSD, DVT and PE in 2019, GERD, hyperlipidemia, recurrent anemia as a cause of which has not been found, pulmonary embolism. ICD. Lower back surgery. Social history: Patient is a boyfriend. Does not smoke or drink alcohol. No recreational drugs. Family history: Brother had sudden cardiac Physical examination: VITAL SIGNS: 97.9, 65, 18, 114/77, 99% on 4 L GENERAL:. BMI 40.1, reclining in bed, breathing better. EYES: Pupils equal. Conjunctiva normal. HEENT: External appearance of nose and ears normal, oral cavity grossly normal. NECK: JVD not raised; masses not palpable. HEART: First and second heart sounds are normal; no edema systolic murmur. LUNGS: Respiratory rate increased; clear to auscultation. ABDOMEN: Soft, nontender, liver spleen not palpable, no masses palpable. PSYCH: Alert and oriented x3; mood and affect normal. INVESTIGATIONS, reviewed in the clinical context: December 18: White count 7.5 hemoglobin 8.9 platelets with 79 potassium 4.5 crit 0.7 WBC 8.4 hemoglobin 8.9 platelets 300 sodium 135 potassium 4.8 BUN 13 creatinine is 0.71 Troponin I 0.0., 0.037 LDL 97 EKG tracing personally reviewed by me-normal sinus rhythm, left bundle-branch block, rate 87 Chest x-ray film personally reviewed by me-cardiomegaly. No obvious venous pro minence. Previous testin-D echocardiogram: [November 17] Severe concentric LVH, EF 55-60% left ventricular outflow obstruction severe mitral regurgitation. [id number] tricuspid regurgitation. [id number] pulmonary hypertension Assessment and plan: -Likely angina precipitated by anemia -Acute anemia. 6.5 [facility]. Received total of 2 units of blood. Per patient this is at least fourth time she's had significant drop in hemoglobin. Workup has been negative. Denies any black stools. EGD" and" colonoscopy last year [facility] was unremarkable. Patient to follow-up with her gastrin trouble just -Hypertrophic cardiomyopathy with septal myomectomy. Being followed parent aide -Severe mitral regurgitation from recent echocardiogram. With a prior history of valvuloplasty. 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 -Chronic DVT and PE in 2019. Continue with xarelto. Patient has no outward evidence of any acute bleeding. -GERD Protonix 40 mg daily -Hyperlipidemia Lipitor 40 mg daily at bedtime -Morbid obesity BMI 40.1. Weight loss measures -Left bundle-branch block - Disposition: Home Patient Condition at Discharge: Fair Plan - Discharge Summary Discharge Rx Participant: No New Discharge Prescriptions: Continue Metoprolol Succinate 200 mg PO BID Atorvastatin [Lipitor] 40 mg PO HS Pantoprazole [Protonix] 40 mg PO DAILY #30 tab Calcium Carbonate [Tums Ultra Strength] 500 mg PO QID PRN #30 tab PRN Reason: Dyspepsia HYDROcodone/APAP 5-325MG [[place] 5-325] 1 tab PO Q4HR PRN 3 Days #18 tab PRN Reason: Pain Ferrous Gluconate 324 mg PO DAILY #30 tablet Losartan [Cozaar] 25 mg PO DAILY Rivaroxaban [Xarelto] 20 mg PO DAILY Mexiletine [Mexitil] 150 mg PO Q8H Ranolazine [Ranolazine ER] 500 mg PO Q12HR Furosemide [Lasix] 20 mg PO DAILY PRN PRN Reason: Edema Aspirin EC [Ecotrin Low Dose] 81 mg PO DAILY Famotidine 20 mg PO BID #60 tab Discharge Medication List Aspirin EC [Ecotrin Low Dose] 81 mg PO DAILY 11/17/20 [History] Atorvastatin [Lipitor] 40 mg PO HS 11/17/20 [History] Furosemide [Lasix] 20 mg PO DAILY PRN 11/17/20 [History] Losartan [Cozaar] 25 mg PO DAILY 11/17/20 [History] Metoprolol Succinate 200 mg PO BID 11/17/20 [History] Mexiletine [Mexitil] 150 mg PO Q8H 11/17/20 [History] Ranolazine [Ranolazine ER] 500 mg PO Q12HR 11/17/20 [History] Rivaroxaban [Xarelto] 20 mg PO DAILY 11/17/20 [History] Calcium Carbonate [Tums Ultra Strength] 500 mg PO QID PRN #30 tab 11/19/20 [Rx] Famotidine 20 mg PO BID #60 tab 11/19/20 [Rx] Ferrous Gluconate 324 mg PO DAILY #30 tablet 11/19/20 [Rx] HYDROcodone/APAP 5-325MG [[place] 5-325] 1 tab PO Q4HR PRN 3 Days #18 tab 11/19/20 [Rx] Pantoprazole [Protonix] 40 mg PO DAILY #30 tab 11/19/20 [Rx] Follow up Appointment(s)/Referral(s): Media Relations Intern-dr bijan [Other] - 1 Week [employer] Polisher-dr bijan [Other] - 1 Week Morena Price MD [Primary Care Provider] - 1-2 days [facility], [NON-STAFF] - Patient Instructions/Handouts: Chest Pain (DC), Hypertensive Crisis (DC) Activity/Diet/Wound Care/Special Instructions: Remind patient at discharge to go to [facility] to purchase a BP cuff and pulse oximeter dc if ok with cardiology Discharge Disposition: HOME SELF-CARE
== END 2020-12-18 14:50 | disposition home or self-care (01) | DRG 811 ==
LOC: EC 23:10 → 3SCARD 12-17
PROVIDERS: ADMIT Hospitalist; ATTEND Hospitalist
PROC: 30233N1 Transfusion of Nonautologous Red Blood Cells into Peripheral Vein, Percutaneous Approach (ICD-10-PCS; principal; 2020-12-17)
DX: D50.0 Iron deficiency anemia secondary to blood loss (chronic) (principal); I21.A1 Myocardial infarction type 2; I42.1 Obstructive hypertrophic cardiomyopathy; Z68.41 Body mass index [BMI] 40.0-44.9, adult; I20.9 Angina pectoris, unspecified; E66.01 Morbid (severe) obesity due to excess calories; E78.5 Hyperlipidemia, unspecified; F43.10 Post-traumatic stress disorder, unspecified; I50.9 Heart failure, unspecified; I11.0 Hypertensive heart disease with heart failure; I16.0 Hypertensive urgency; I25.2 Old myocardial infarction; I08.1 Rheumatic disorders of both mitral and tricuspid valves; I34.0 Nonrheumatic mitral (valve) insufficiency; I27.29 Other secondary pulmonary hypertension; I44.7 Left bundle-branch block, unspecified; K21.9 Gastro-esophageal reflux disease without esophagitis; Z79.01 Long term (current) use of anticoagulants; Z79.82 Long term (current) use of aspirin; Z79.899 Other long term (current) drug therapy; Z86.711 Personal history of pulmonary embolism; Z86.718 Personal history of other venous thrombosis and embolism; Z87.891 Personal history of nicotine dependence; Z95.2 Presence of prosthetic heart valve; Z95.810 Presence of automatic (implantable) cardiac defibrillator; Z98.1 Arthrodesis status; Z90.49 Acquired absence of other specified parts of digestive tract; Z88.0 Allergy status to penicillin; Z88.1 Allergy status to other antibiotic agents; Z91.041 Radiographic dye allergy status; Z86.79 Personal history of other diseases of the circulatory system
CPT/HCPCS: 71045; 71046; 80048; 80053; 80061; 84484; 85025; 93005; 99285